=== PATIENT | female | born 1950 | race Two or more races ===

== ENCOUNTER → 2024-09-04 | Outpatient (CLI) | payer MEDICARE, MEDICAID, SELFPAY ==
[2024-09-04 12:38] LABS: Basophils % (Auto) 1 % (0-2.5); Eosinophils # (Auto) 0.1 Thou/mm3 (0.0-0.5); Eosinophils % (Auto) 2 % (0-10); Hematocrit 36.2 % (36.0-46.0); Hemoglobin 12.1 g/dL (12.0-16.0); Immature Granulocytes % (Auto) 1 % (0-0); Immature Granulocytes Auto 0.03 Thou/mm3 (0.00-0.00); Lymphocytes % (Auto) 36 % (10-50); Mean Corpuscular HGB Conc 33.4 g/dl (31.0-37.0); Mean Corpuscular Hemoglobin 32.2 pg (25.0-35.0); Mean Corpuscular Volume 96 fL (80-100); Monocytes # (Auto) 0.3 Thou/mm3 (0.0-0.8); Monocytes % (Auto) 6 % (0-12); Neutrophils % (Auto) 55 % (37-80); Nucleated Red Blood Cell % 0 /100 WBC (0); Platelet Count 123 Thou/mm3 (140-440); RDW Standard Deviation 43.8 fL (36.4-46.3); Red Blood Count 3.76 Miln/mm3 (4.00-5.20); White Blood Count 5.4 Thou/mm3 (3.6-11.0)
[2024-09-04 12:55] LABS: Anion Gap 10 (7-16); BUN/Creatinine Ratio 30 Ratio (12-20); Blood Urea Nitrogen 30 mg/dL (9-23); Calcium 9.8 mg/dL (8.3-10.6); Carbon Dioxide 25.5 mMol/L (20.0-31.0); Cardiac Risk Estimate 3.2 RATIO (3.7-5.6); Chloride 109 mMol/L (98-107); Cholesterol 136 mg/dL (132-200); Glucose 111 mg/dL (74-106); HDL Cholesterol 43 mg/dL (40-60); LDL Cholesterol,Calculated 65 mg/dL (0-130); Osmolality,Calculated 294 (275-295); Potassium 4.7 mMol/L (3.4-5.1); Sodium 144 mMol/L (136-145); Triglycerides 138 mg/dL (30-150); eGFR 60 See Note
[2024-09-04 12:58] LABS: Glucose Estimated Average 243 mg/dL (80-131); Hemoglobin A1C 10.1 % Hgb (4.8-6.0)
== END | disposition home or self-care (01) ==
LOC: COPL 11:12
PROVIDERS: PCP Family Medicine; Referring Provider Family Medicine; Visit Provider Family Medicine
DX: E11.65 Type 2 diabetes mellitus with hyperglycemia (principal)
CPT/HCPCS: 36415; 80048; 80061; 83036; 85025

== ENCOUNTER 2024-10-11 16:35 | Emergency (ER) | payer MEDICARE, MEDICAID, SELFPAY ==
[2024-10-11 16:47] VITALS: BP 127/67; PULSE 100; RESP 17; TEMP 37.1; O2SAT 97; BMI 36.3
--- NOTE | 2024-10-11 17:11 | XR_ITS ---
Examination: Bilateral hips, AP pelvis, 5 views Technique: AP, lateral views both hips, AP pelvis, 5 views Exam date and time: October 11, 2024 1719 hours INDICATIONS: Patient fell 11 days ago with injury to both hips, bilateral hip pain. FINDINGS: Significant osteopenia No right or left hip fracture or hip dislocation Bones of the pelvis intact IMPRESSION: No acute hip or pelvic fracture
--- NOTE | 2024-10-11 17:11 | XR_ITS ---
Examination: Duplex scan of the lower extremity, unilateral left complete Date and time of exam: October 11, 2024 at 1818 hrs. Indications: Patient fell last week with injury to the leg, leg bruising swelling and pain post injury Technique: Duplex scan of the extremity veins using B-mode/grayscale imaging and Doppler spectral analysis and color flow Attention is directed to internal echogenicity, compression and augmentation involving these veins, color flow assessment, spectral analysis Findings: Major deep venous structures in the extremity demonstrate normal course and caliber. There is no evidence of deep vein thrombosis. Normal color flow and spectral analysis Impression: Negative for DVT..
--- NOTE | 2024-10-11 17:13 | XR_ITS ---
Examination: Left femur 2 views Technique one AP lateral left femur 2 views Exam date and time: October 11, 2024 at 1719 hours INDICATIONS: Patient fell 11 days ago with injury to the left leg, left femur pain FINDINGS: Severe osteopenia No acute hip fracture or dislocation Shaft of the femur intact IMPRESSION: No acute femur fracture
--- NOTE | 2024-10-11 17:14 | PD.EDRME ---
Rapid Medical Screening Exam E Arrival date/time: 10/11/24 16:35 This is a 73-year-old female who presents to the emergency department with complaints of fall over 1 week ago complaining of left leg pain hip pain swelling and bruising. I have greeted and performed a focused initial assessment of this patient. Initial appropriate labs ordered at this time. A comprehensive ED assessment and evaluation of the patient and analysis of all test and completion of medical decision making process will be conducted by additional ED provider. Chief Complaint: Fall Time Seen by Provider: 10/11/24 16:54 Vital signs: Vital Signs Temperature 98.7 F 10/11/24 16:47 Pulse Rate 100 10/11/24 16:47 Respiratory Rate 17 10/11/24 16:47 Blood Pressure 127/67 10/11/24 16:47 Pulse Oximetry (%) 97 10/11/24 16:47 Oxygen Delivery Method Room Air 10/11/24 16:47
[2024-10-11 18:27] LABS: Basophils % (Auto) 0 % (0-2.5); Eosinophils % (Auto) 0 % (0-10); Hematocrit 31.1 % (36.0-46.0); Immature Granulocytes % (Auto) 1 % (0-0); Lymphocytes # (Auto) 0.8 Thou/mm3 (1.0-4.8); Lymphocytes % (Auto) 8 % (10-50); Mean Corpuscular HGB Conc 32.2 g/dl (31.0-37.0); Mean Corpuscular Hemoglobin 31.2 pg (25.0-35.0); Mean Corpuscular Volume 97 fL (80-100); Monocytes # (Auto) 0.4 Thou/mm3 (0.0-0.8); Monocytes % (Auto) 4 % (0-12); Neutrophils # (Auto) 7.8 Thou/mm3 (1.8-7.7); Neutrophils % (Auto) 86 % (37-80); Nucleated Red Blood Cell % 0 /100 WBC (0); Platelet Count 133 Thou/mm3 (140-440); RDW Standard Deviation 47.3 fL (36.4-46.3); Red Blood Count 3.21 Miln/mm3 (4.00-5.20); White Blood Count 9.1 Thou/mm3 (3.6-11.0)
[2024-10-11 18:33] LABS: Prothrombin Time 10.9 Seconds (9.0-12.2)
[2024-10-11 18:34] LABS: Alanine Aminotransferase 22 U/L (10-49); Albumin, Serum 4.1 gm/dL (3.4-4.8); Albumin/Globulin Ratio 1.7 (1.2-2.2); Alkaline Phosphatase 63 U/L (46-116); Anion Gap 10 (7-16); Aspartate Amino Transferase 16 U/L (0-34); BUN/Creatinine Ratio 28 Ratio (12-20); Bilirubin,Total 0.4 mg/dL (0.3-1.2); Blood Urea Nitrogen 34 mg/dL (9-23); Calcium 9.6 mg/dL (8.3-10.6); Calcium (Corrected) 9.6 mg/dL (8.5-10.1); Carbon Dioxide 22.9 mMol/L (20.0-31.0); Chloride 107 mMol/L (98-107); Creatinine (Component) 1.2 mg/dL (0.6-1.3); Estimated Creatinine Clearance 35.9 mL/min (>60); Globulin 2.4 gm/dL (2.3-3.5); Lipase 69 U/L (12-53); Osmolality,Calculated 306 (275-295); Sodium 140 mMol/L (136-145); Total Protein 6.5 gm/dL (5.7-8.2); eGFR 48 See Note
[2024-10-11 18:38] LABS: Glucose 449 mg/dL (74-106)
--- NOTE | 2024-10-11 21:49 | PC.NURSE ---
Pt to room 16 at this time from lobby; assumed care of pt.
[2024-10-11 22:00] VITALS: BP 153/64; PULSE 87; RESP 16; O2SAT 98
[2024-10-11 23:05] VITALS: TEMP 36.7
--- NOTE | 2024-10-11 23:12 | PD.EDFALL ---
ED Fall Injury RME/HPI General Chief Complaint: Fall Stated Complaint: FALL ON 09/30, INJURY TO LEFT LEG THIGH TO FOOT Time Seen by Provider: 10/11/24 16:54 Arrival date/time: 10/11/24 16:35 Limitations: no limitations RME / HPI RME / HPI Narrative: 10/11/24 16:35 This is a 73-year-old female who presents to the emergency department with complaints of fall over 1 week ago complaining of left leg pain hip pain swelling and bruising. I have greeted and performed a focused initial assessment of this patient. Initial appropriate labs ordered at this time. A comprehensive ED assessment and evaluation of the patient and analysis of all test and completion of medical decision making process will be conducted by additional ED provider. Dr. Lee's Main ED Evaluation: 73yo female with pmhx diabetes, hypertension, high cholesterol, congestive heart failure presents to the ED for a chief complaint of a fall 1 week ago. Patient states she fell over on her left side one week ago when she was leaning over to put soda away. She endorses having left hip pain. She denies any headache, neck pain, chest pain or any other associated symptoms. She is on blood thinners. No known allergies. Related Data Home Medications ?Medication ?Instructions ?Recorded ?Confirmed glipizide 10 mg tablet 10 mg PO QDAY ##0 05/11/09 08/29/21 metformin 850 mg tablet 850 mg PO BID ##0 05/11/09 08/29/21 tramadol 50 mg tablet 50 mg PO BID ##0 12/28/13 08/29/21 clopidogrel 75 mg tablet 1 tab PO DAILY 01/02/18 08/29/21 famotidine 40 mg tablet (Pepcid) 40 mg PO DAILY 01/02/18 08/29/21 Previous Rx's ?Medication ?Instructions ?Recorded atorvastatin 20 mg tablet 20 mg PO HS #30 tabs 07/26/18 lisinopril 20 mg tablet 20 mg PO QDAY #30 tabs 07/26/18 meclizine 25 mg tablet 25 mg PO QDAY PRN dizziness #10 05/16/23 tabs cephalexin 500 mg capsule 500 mg PO QID #28 caps 08/05/23 Allergies Allergy/AdvReac Type Severity Reaction Status Date / Time No Known Allergies Allergy Verified 10/11/24 16:38 Review of Systems Review of Systems Systems Reviewed: All systems reviewed, normal except as documented Past Medical History Past Medical History NEUROLOGIC: Positive Cerebrovascular Accident; Negative Neurological Disorders, Transient Ischemic Attacks (TIA), Dementia, Alzheimer's Disease, Parkinson's Disease, Brain Tumor, Meningitis, Seizures, Epilepsy, Multiple Sclerosis, Cerebral Palsy, Amyotrophic Lateral Sclerosis (ALS/Lizz Gehrig's), Guillain-Johnson Syndrome, Spina Bifida, Paralysis, Peripheral Neuropathy, Quiroz's Palsy, Subdural Hematoma, Migraine, Head Trauma, Spinal Cord Injury or Traumatic Brain Injury CARDIAC: Positive Cardiac Disorders, Myocardial Infarction, Angina, Heart Murmur, Coronary Artery Disease, Hypercholesterolemia, Aneurysm, Congestive Heart Failure, Edema and Hypertension; Negative Cardiac Arrhythmia, Atrial Fibrillation, Atherosclerotic Heart Disease, Peripheral Vascular Disease, Congenital Heart Disease, Valvular Heart Disease, Rheumatic Fever, Cardiomyopathy, Pericarditis, Cellulitis, Deep Vein Thrombosis, Hypotension or Varicose Veins RESPIRATORY: Positive Chronic Obstructive Pulmonary Disease (COPD) GASTROINTESTINAL: Positive Obesity; Negative Gastrointestinal Disorders, Cirrhosis, Pancreatitis, Celiac Disease, Gall Bladder Disease, Gastrointestinal Bleed, Esophageal Varices, Fair's Esophagus, Colitis, Ulcerative Colitis, Diverticulitis, Diverticulosis, Ulcer, Irritable Bowel, Crohn's Disease, Obstructive Bowel, Hiatal Hernia, Hemorrhoids or Gastroesophageal Reflux Disease GENITOURINARY: Negative Genitourinary Disorders, Renal Disease, Kidney Stones, Polycystic Kidney Disease, Neurogenic Bladder, Inguinal Hernia, Dialysis or Benign Prostatic Hyperplasia REPRODUCTIVE: Positive Previous Pregnancies; Negative Pelvic Inflammatory Disease MUSCULOSKELETAL: Negative Musculoskeletal Disorders, Muscular Dystrophy, Myasthenia Gravis, Marfan's Syndrome, Arthritis, Rheumatoid Arthritis, Osteoporosis, Degenerative Disk Disease, Gout, Scoliosis, Fibromyalgia, Fractures, Degenerative Joint Disease, Osteomyelitis or Poliovirus ENT: Positive Cataracts; Negative Glaucoma, Blind, Retinal Detachment, Macular Degeneration, Ear Infection, Deafness, Head Trauma or Eye Prosthesis ENDOCRINE: Positive Diabetes Mellitus Type 2; Negative Endocrine Disorders, Diabetes Mellitus Type 1, Hypoglycemia, Ashleigh's Syndrome, Livingston's Disease, Hyperthyroidism, Hypothyroidism, Parathyroid Disease, Pituitary Disease, Systemic Lupus Erythematosus, Syndrome of Inappropriate Antidiuretic Hormone (SIADH), Adrenal Disease or Graves' Disease HEMATOLOGIC: Positive Anemia; Negative Blood Disorders, Leukemia, Hemophilia, Thalassemia, Sickle Cell Disease or Clotting Problems PSYCHO/SOCIAL: Positive Anxiety; Negative Psychiatric Problems, Schizophrenia, Recreational Drug Use, Bipolar Disorder, Depression, Behavior Problems, Self-Mutilation, Attention Deficit Disorder, Attention Deficit Hyperactivity Disorder, Depression, Post Traumatic Stress Disorder or Eating Disorder OTHER HISTORY: Positive Hospitalization, Blood Transfusions and Chicken Pox; Negative Autoimmune Disease, Autism or Blood Transfusion Reaction Family History FAMILY HISTORY: Positive Family Respiratory Disorders and Family Cardiac Disorders; Negative Family Psychiatric Problems, Family Gastrointestinal Problems, Family Cancer, Family Surgery or Family Anesthesia Reaction Surgical History SURGICAL: Positive Cardiac Surgery, Coronary Stent, Abdominal Surgery and Section; Negative Pacemaker, Endocrine Surgery, Thyroidectomy, Ear Surgery, Nephrectomy, Joint Replacement, Neurologic Surgery or Mastectomy Social History SMOKING STATUS: Never smoker SUBSTANCE USE: does not use ED Exam General Limitations: Present no limitations General appearance: Present alert and in no apparent distress Head Head exam: Present atraumatic Eye Eye exam: Present normal appearance, PERRL and EOMI ENT ENT exam: Present normal exam, normal oropharynx and mucous membranes moist Neck Neck exam: Present normal inspection, full ROM and trachea midline Chest Chest inspection: Present normal inspection and symmetric chest wall rise Respiratory Respiratory exam: Present normal lung sounds bilaterally Cardiovascular Cardiovascular exam: Present regular rate, normal rhythm and normal heart sounds Abdominal Exam Abdominal exam: Present soft and normal bowel sounds Extremities Exam Extremities exam: Present normal inspection, full ROM and other (ecchymosis to the left outer hip without any fluctuance, full ROM of the left hip, no bony tenderness, good distal pulses) Back Exam Back exam: Present normal inspection and full ROM Neurological Exam Neurological exam: Present alert, oriented X3 and CN II-XII intact Psychiatric Psychiatric exam: Present normal affect and normal mood Skin Skin exam: Present warm, dry, intact and other (ecchymosis from the left medial thigh down to the medial lef) Course Course Course Narrative: 2334: Repeat FSBS is 362. Patient is stable to be discharged home. Quality Measures none Orders Category Date Time Status US venous duplex LE LT Stat Exams 10/11/24 17:11 Completed XR femur LT 2V Stat Exams 10/11/24 17:13 Completed XR hip BI w pelvis 3-4V Stat Exams 10/11/24 17:11 Completed CBC Stat Lab 10/11/24 17:45 Completed Comprehensive Metabolic Panel Stat Lab 10/11/24 17:45 Completed Lipase Stat Lab 10/11/24 17:45 Completed PT [Prothrombin Time with INR] Stat Lab 10/11/24 17:45 Completed Vital Signs Vital signs: Vital Signs Temperature 98.7 F 10/11/24 16:47 Pulse Rate 100 10/11/24 16:47 Respiratory Rate 17 10/11/24 16:47 Blood Pressure 127/67 10/11/24 16:47 Pulse Oximetry (%) 97 10/11/24 16:47 Oxygen Delivery Method Room Air 10/11/24 16:47 Fall Patient data External records reviewed:: [facility] previous records (Per chart review, patient has no relevant previous ED visits.) Clinical information provided by:: patient Social determinants that could affect healthcare access:: none Patient has the following chronic illnesses:: DM, HTN, HLD, CHF How is presenting disease/condition affected by chronic disease/condition?: uneffected by Evaluation data The following diagnostics were reviewed and interpreted by me:: lab results and radiology exam(s) Lab and/or radiology exams considered but not ordered:: none Interpretation Summary: WBC count is normal, HnH is stable, Glucose is elevated at 449, according to my interpretation. ---- [facility] Report Signed Patient: BLU BONE Pod[employer]. Record#: [id number] Birthdate: 1950 Age/Sex: 73 / F Location: [facility] Attending Dr: Ordering Physician: Shanda Escobar Date of Service: 10/11/24 Procedure(s): XR hip BI w pelvis 3-4V Accession Number(s): [id number] cc: Damaso Tim MD; Shanda Escobar~ Examination: Bilateral hips, AP pelvis, 5 views Technique: AP, lateral views both hips, AP pelvis, 5 views Exam date and time: October 11, 2024 1719 hours INDICATIONS: Patient fell 11 days ago with injury to both hips, bilateral hip pain. FINDINGS: Significant osteopenia No right or left hip fracture or hip dislocation Bones of the pelvis intact IMPRESSION: No acute hip or pelvic fracture Dictated By: Damaso Tim MD Signed By: <Electronically signed by Damaso Tim MD in OV> 10/11/24 1745 -------- [facility] Report Signed Patient: BLU BONE PodPoster. Record#: [id number] Birthdate: 1950 Age/Sex: 73 / F Location: [facility] Attending Dr: Ordering Physician: Shanda Escobar Date of Service: 10/11/24 Procedure(s): US venous duplex LE LT Accession Number(s): [id number] cc: Damaso Tim MD; Sydni Garza MD; Shanda Escobar~ Examination: Duplex scan of the lower extremity, unilateral left complete Date and time of exam: October 11, 2024 at 1818 hrs. Indications: Patient fell last week with injury to the leg, leg bruising swelling and pain post injury Technique: Duplex scan of the extremity veins using B-mode/grayscale imaging and Doppler spectral analysis and color flow Attention is directed to internal echogenicity, compression and augmentation involving these veins, color flow assessment, spectral analysis Findings: Major deep venous structures in the extremity demonstrate normal course and caliber. There is no evidence of deep vein thrombosis. Normal color flow and spectral analysis Impression: Negative for DVT.. Dictated By: Damaso Tim MD Signed By: <Electronically signed by Damaso Tim MD in OV> 10/11/241950 -------- [facility] Report Signed Patient: BLU BONE Record#: [id number] Birthdate: 1950 Age/Sex: 73 / F Location: [facility] Attending Dr: Ordering Physician: Shanda Escobar Date of Service: 10/11/24 Procedure(s): XR femur LT 2V Accession Number(s): [id number] cc: Damaso Tim MD; Shanda Escobar~ Examination: Left femur 2 views Technique one AP lateral left femur 2 views Exam date and time: October 11, 2024 at 1719 hours INDICATIONS: Patient fell 11 days ago with injury to the left leg, left femur pain FINDINGS: Severe osteopenia No acute hip fracture or dislocation Shaft of the femur intact IMPRESSION: No acute femur fracture Dictated By: Damaso Tim MD Signed By: <Electronically signed by Damaso Tim MD in OV> 10/11/24 1745 Medications / Prescriptions Medications or Prescriptions considered but not ordered:: none Medication administrations:: see above, if any Consultations Consultation(s) initiated? (list below): No Diagnosis Fall Differential Diagnosis: other (fracture, dislocation, contusion) Most likely diagnosis given after review of the tests above:: see below Admission Indicated Admission indicated?: not indicated Admission Request Was there a request for admission?: No Disposition Plan Disposition Plan: Discharge Discharge Attestation Discharge Attestation: The patient and all family members were given an opportunity to ask questions and understood the discharge instructions. Discharge instructions specifically effects, indications for sooner follow up or return to the emergency department, and the expected course of current diagnosis. Patient condition: Stable Discharge Plan Plan Patient Disposition: HOME (Self Care) Patient condition on transfer: Stable Prescriptions/Referrals Prescriptions/Med Rec: No Action glipizide 10 MG tablet 10 mg PO QDAY Qty: 0 metformin 850 mg Tablet 850 mg PO BID Qty: 0 tramadol 50 mg Tablet 50 mg PO BID Qty: 0 famotidine [Pepcid] 40 mg Tablet 40 mg PO DAILY clopidogrel 75 mg Tablet 1 tab PO DAILY atorvastatin 20 mg Tablet 20 mg PO HS Qty: 30 2RF lisinopril 20 mg Tablet 20 mg PO QDAY Qty: 30 2RF meclizine 25 mg tablet 25 mg PO QDAY PRN (Reason: dizziness) Qty: 10 0RF cephalexin 500 mg capsule 500 mg PO QID Qty: 28 0RF Referrals: SQ Sydin Moss MD [Primary Care Provider] - In 1 week Problem List Clinical Impression: Ecchymosis on examination, Fall (on)(from) incline, initial encounter Patient/Caregiver Discharge Instructions Education Materials: Dizziness Fainting Poss Causes Print Language: [place] Stand Alone Forms: Frances Award Info., Patient Portal Info Letter
--- NOTE | 2024-10-11 23:12 | PC.NURSE ---
Dr. Lee at the bedside at this time.
[2024-10-11 23:41] VITALS: BP 143/57; PULSE 85; RESP 19; O2SAT 97
== END 2024-10-11 23:41 | disposition home or self-care (01) ==
PROVIDERS: Nurse Practitioner Primary Care; Emergency Provider Emergency Medicine; PCP Family Medicine
DX: S70.02XA Contusion of left hip, initial encounter (principal); S70.12XA Contusion of left thigh, initial encounter; S79.911A Unspecified injury of right hip, initial encounter; W19.XXXA Unspecified fall, initial encounter
CPT/HCPCS: 36415; 73522; 73552; 80053; 83690; 85025; 85610; 93971; 99284

== ENCOUNTER → 2025-02-22 | Outpatient (CLI) | payer OTHER, MEDICAID, SELFPAY ==
[2025-02-22 11:02] LABS: Collection Type, Urine Clean Catch
[2025-02-22 11:22] LABS: Basophils % (Auto) 0 % (0-2.5); Eosinophils % (Auto) 0 % (0-10); Hematocrit 32.6 % (36.0-46.0); Hemoglobin 10.6 g/dL (12.0-16.0); Immature Granulocytes % (Auto) 1 % (0-0); Immature Granulocytes Auto 0.06 Thou/mm3 (0.00-0.00); Lymphocytes # (Auto) 0.9 Thou/mm3 (1.0-4.8); Lymphocytes % (Auto) 15 % (10-50); Mean Corpuscular HGB Conc 32.5 g/dl (31.0-37.0); Mean Corpuscular Hemoglobin 29.7 pg (25.0-35.0); Mean Corpuscular Volume 91 fL (80-100); Monocytes # (Auto) 0.3 Thou/mm3 (0.0-0.8); Monocytes % (Auto) 5 % (0-12); Neutrophils # (Auto) 4.6 Thou/mm3 (1.8-7.7); Neutrophils % (Auto) 79 % (37-80); Nucleated Red Blood Cell % 0 /100 WBC (0); Platelet Count 184 Thou/mm3 (140-440); RDW Standard Deviation 46.7 fL (36.4-46.3); Red Blood Count 3.57 Miln/mm3 (4.00-5.20); White Blood Count 5.8 Thou/mm3 (3.6-11.0)
[2025-02-22 11:30] LABS: Bilirubin,Urine Negative (Negative); Blood,Urine Negative (Negative); Clarity,Urine Clear (Clear/Hazy); Color,Urine Lt-Yellow (Lt Yel-Yel); Glucose, Urine 4+ (Negative); Ketones,Urine Negative (Negative); Leukocyte Esterase,Urine Positive (Negative); Nitrite,Urine Negative (Negative); Protein,Urine Trace (Neg - Trace); RBC,Urine 2 /hpf (0-3); Specific Gravity,Urine 1.022 (1.001-1.035); Squamous Epithelial Cell,Urine 1 /hpf (0-5); Urobilinogen,Urine Negative mg/dL (0.0-1.0); WBC,Urine 6 /hpf (0-5)
[2025-02-22 11:39] LABS: Alanine Aminotransferase 17 U/L (10-49); Albumin, Serum 4.4 gm/dL (3.4-4.8); Alkaline Phosphatase 64 U/L (46-116); Anion Gap 13 (7-16); Aspartate Amino Transferase 14 U/L (0-34); BUN/Creatinine Ratio 26 Ratio (12-20); Bilirubin,Total 0.3 mg/dL (0.3-1.2); Blood Urea Nitrogen 26 mg/dL (9-23); Calcium 8.6 mg/dL (8.3-10.6); Calcium (Corrected) 8.6 mg/dL (8.5-10.1); Carbon Dioxide 23.1 mMol/L (20.0-31.0); Cardiac Risk Estimate 3.5 RATIO (3.7-5.6); Chloride 108 mMol/L (98-107); Cholesterol 108 mg/dL (132-200); Globulin 2.2 gm/dL (2.3-3.5); Glucose 341 mg/dL (74-106); HDL Cholesterol 31 mg/dL (40-60); LDL Cholesterol,Calculated 51 mg/dL (0-130); Osmolality,Calculated 304 (275-295); Potassium 4.9 mMol/L (3.4-5.1); Sodium 144 mMol/L (136-145); Thyroid Stimulating Hormone 0.89 uIU/mL (0.55-4.78); Total Protein 6.6 gm/dL (5.7-8.2); Triglycerides 131 mg/dL (30-150); eGFR 59 See Note
[2025-02-22 11:48] LABS: Creatinine MALB Rnd Ur 36 mg/dL (30-125); Microalbumin Creat Ratio 364 mg/gCrea (<30); Microalbumin, Random Urine 131 mg/L (0-300)
[2025-02-22 11:49] LABS: Glucose Estimated Average 249 mg/dL (80-131); Hemoglobin A1C 10.3 % Hgb (4.8-6.0)
== END | disposition home or self-care (01) ==
PROVIDERS: PCP Family Medicine; Referring Provider Family Medicine; Visit Provider Family Medicine
DX: Z00.00 Encounter for general adult medical examination without abnormal findings (principal); E11.40 Type 2 diabetes mellitus with diabetic neuropathy, unspecified; E78.2 Mixed hyperlipidemia; I10 Essential (primary) hypertension
CPT/HCPCS: 36415; 80053; 80061; 81001; 82043; 82570; 83036; 84443; 85025

== ENCOUNTER → 2025-04-09 | Outpatient (CLI) | payer OTHER, MEDICAID, SELFPAY ==
--- NOTE | 2025-04-09 15:53 | XR_ITS ---
EXAMINATION: Cervical spine, 5 views Technique: Cervical spine AP, AP odontoid, lateral, bilateral obliques, 5 views Exam date and time: April 09, 2025, 6003 hours INDICATIONS: Neck pain one year. FINDINGS: Significant osteopenia Extensive laminectomy C3-C6 Moderate to advanced degenerative disc disease C4-C5 Mild foraminal encroachment bilaterally C3-C4, C4-C5, C5-C6 The odontoid is intact No cervical fracture IMPRESSION: Moderate to advanced degenerative disc disease C4-C5
--- NOTE | 2025-04-09 15:53 | XR_ITS ---
Examination: Shoulder,right, 3 views Technique: Shoulder AP internal rotation, AP external rotation, Y view shoulder, 3 views Exam date and time :April 09, 2025 6003 hours INDICATIONS: Right shoulder pain beginning 3 years ago. FINDINGS: Prominent osteopenia. Moderate to advanced osteoarthritis glenohumeral joint No shoulder fracture or AC joint separation IMPRESSION: Moderate to advanced osteoarthritis glenohumeral joint
== END | disposition home or self-care (01) ==
PROVIDERS: PCP Family Medicine; Referring Provider Family Medicine; Visit Provider Family Medicine
DX: M19.011 Primary osteoarthritis, right shoulder (principal); M50.321 Other cervical disc degeneration at C4-C5 level
CPT/HCPCS: 72050; 73030

== ENCOUNTER 2025-04-11 18:17 | Emergency (ER) | payer OTHER, SELFPAY ==
[2025-04-11 18:18] VITALS: BMI 33.7
--- NOTE | 2025-04-11 18:34 | XR_ITS ---
Examination: Shoulder,right, 3 views Technique: Shoulder AP internal rotation, AP external rotation, Y view shoulder, 3 views Exam date and time :April 11, 2025 1853 hours INDICATIONS: Patient fell 2 days ago with intravenous shoulder, shoulder pain. FINDINGS: No shoulder fracture or dislocation No foreign body IMPRESSION: No shoulder fracture or dislocation
[2025-04-11 19:42] VITALS: BP 99/63; PULSE 91; RESP 20; TEMP 36.7; O2SAT 97
--- NOTE | 2025-04-11 19:49 | EKG_ITS ---
[facility] Test Date: 2025-04-11 Pat Name: BLU BONE Department: Room: - Gender: Female [employer]: : 1950 Requested By: Wu Johnson Order Number: [id number] Reading MD: Wu Johnson Measurements Intervals [place] Rate: 89 P: 27 NE: 174 QRS: -19 QRSD: 106 T: 138 QT: 362 QTc: 441 Interpretive Statements SINUS RHYTHM LEFT VENTRICULAR HYPERTROPHY AND ST-T CHANGE [VOLTAGE CRITERIA PLUS ST/T ABNORMALITY] POSSIBLE ANTERIOR MYOCARDIAL INFARCTION , OF INDETERMINATE AGE [30 ms Q WAVE IN V3/V4, OR R < 0.2 mV IN V4] Compared to ECG 04/06/2024 12:54:09 Myocardial infarct finding now present ST (T wave) deviation still present /store/S0/[id number]/ecg/[id number].pdf
--- NOTE | 2025-04-11 19:50 | XR_ITS ---
Examination: CT brain head without contrast. 2-D sagittal coronal reconstructions Date and time of exam:April 11, 2025 2141 hours Comparison August 05, 2023 INDICATIONS: Patient fell today with injury to head, head pain CTDI: vol (mGy):9.6 DLP: (mGycm):193 Technique: Multiple CT axial sections of the brain have been obtained, 5 mm slice thickness. Contrast has not been administered. 2-D sagittal, coronal reconstructions have been obtained Low dose protocols were performed. One or more of the following dose reduction techniques were used; automated exposure control, adjustment of the mA and/or KV according to patient size, use of iterative reconstruction technique. Findings: No significant ventricular enlargement. Intra-axial or extra-axial hemorrhage density is not seen. No mass effect or midline shift Basal cisterns are not remarkable. Fourth ventricle is midline. Cranial vault intact. Stable calcification right occipital lobe Impression: Negative for acute hemorrhage, mass effect or midline shift
--- NOTE | 2025-04-11 19:50 | XR_ITS ---
Examination: CT cervical spine without contrast 2-D sagittal reconstructions 2-D coronal reconstructions 3-D reconstructions. Exam date and time:April 11, 2025 2141 hours INDICATIONS: Ground-level fall today with image of the neck, neck pain CTDI:vol (mGy) 9.34 DLP: (mGycm) 174 Technique: Multiple 2 mm axial sections of the cervical spine have been obtained. The coronal and sagittal reconstructions have been obtained. 3-D reconstructions have been obtained. Low dose protocols were performed. One or more of the following dose reduction techniques were used; automated exposure control, adjustment of the mA and/or KV according to patient size, use of iterative reconstruction technique. Findings: Axial sections demonstrate intact base of the skull. The laminectomy C3-C6 C1 exhibit satisfactory relationship to the odontoid. No acute cervical vertebral body fracture seen. Fracture posterior spinous process T1 and T2 which appear old but clinical correlation is advised Impression: No acute cervical fracture. Fractures posterior spinous processes T1-T2 which appear old but clinical correlation is advised
--- NOTE | 2025-04-11 19:50 | XR_ITS ---
Examination: AP chest single view TECHNIQUE: AP upright portable chest single view Date and time: April 11, 20252000 hours INDICATIONS: Patient fell today with injury to the chest, chest pain FINDINGS: Normal heart size No pneumonia or pulmonary edema Prominent osteopenia, clavicles ribs appear intact IMPRESSION: No pneumothorax pulmonary contusion or pneumonia identified
--- NOTE | 2025-04-11 19:50 | XR_ITS ---
Examination: CT chest with intravenous contrast CT abdomen with intravenous contrast CT pelvis with intravenous contrast 2-D coronal and sagittal reconstructions Time of exam: April 11, 2025 2150 hours INDICATIONS: Patient fell today within the chest and abdomen, chest pain abdomen pain CTDI: vol (mGy) : 16 DLP: (mGycm): 1117 Technique: Multiple axial images of the chest, abdomen and pelvis with intravenous contrast, 3.0 mm slice thickness. Images obtained post intravenous injection Isovue 370 60 cc. 2-D sagittal and coronal reconstructions. Low dose protocols were performed. One or more of the following dose reduction techniques were used; automated exposure control, adjustment of the mA and/or KV according to patient size, use of iterative reconstruction technique. Findings: Thoracic aorta pulmonary arteries intact No hemopericardium, pneumothorax or pulmonary contusion or hemothorax Sternal segment intact No thoracic or lumbar or sacral vertebral body compression fracture Old appearing fractures posterior spinous processes T1, T2, T3, T4, T5 but the appearance should be clinically correlated Ribs appear intact No liver or splenic or renal laceration Absent gallbladder No pancreatic or adrenal mass Abdominal aorta intact No free body in the abdomen Normal appendix Negative for pneumoperitoneum Atrophic uterus Urinary bladder intact Hips bones of the pelvis is intact IMPRESSION: Thoracic aorta pulmonary arteries intact No pneumothorax pulmonary contusion or hemothorax No abdominal parenchymal laceration. Abdominal aorta intact No free fluid in the abdomen or pelvis Fractures posterior spinous processes T1, T2, T3, T4, T5, which appear old but the appearance should be clinically correlated If there is pain involving the posterior thoracic vertebral bodies in this region, recommend MRI thoracic spine without contrast follow-up
--- NOTE | 2025-04-11 19:50 | XR_ITS ---
Examination: Right elbow 3 views Technique: Elbow AP, oblique, lateral 3 views Exam date and time: April 11, 2025 1953 hours INDICATIONS: Patient fell today with injury of the elbow, elbow pain. FINDINGS: Prominent osteopenia. No acute fracture No dislocation No elbow effusion IMPRESSION: No acute fracture
--- NOTE | 2025-04-11 19:50 | XR_ITS ---
Examination: Wrist, right 3 views Technique: Wrist AP, oblique, lateral 3 views Date and time of exam: April 11, 2025, 195 hours INDICATIONS: Patient fell today with intravenous, wrist pain. FINDINGS: Prominent osteopenia No acute fracture Distal ulna is dorsally positioned on the lateral view mildly IMPRESSION: No acute fracture Distal ulna is mildly dorsally positionED on the lateral view, clinical correlation advised
--- NOTE | 2025-04-11 19:53 | PD.EDFALL ---
ED Fall Injury RME/HPI General Chief Complaint: Extremity Injury, Upper Stated Complaint: RIGHT SHOULDER PAIN SP FALL STANDING TO GROUN Time Seen by Provider: 04/11/25 19:52 Arrival date/time: 04/11/25 18:17 74F with history of CAD, HTN, DM, and CHF presents to ED with RUE pain and weakness after she got dizzy while sitting on the toilet 2 days ago and fell. There is also some head/neck pain. Possible AMS. Limitations: no limitations Related Data Home Medications ?Medication ?Instructions ?Recorded ?Confirmed glipizide 10 mg tablet 10 mg PO QDAY ##0 05/11/09 08/29/21 metformin 850 mg tablet 850 mg PO BID ##0 05/11/09 08/29/21 tramadol 50 mg tablet 50 mg PO BID ##0 12/28/13 08/29/21 clopidogrel 75 mg tablet 1 tab PO DAILY 01/02/18 08/29/21 famotidine 40 mg tablet (Pepcid) 40 mg PO DAILY 01/02/18 08/29/21 Previous Rx's ?Medication ?Instructions ?Recorded atorvastatin 20 mg tablet 20 mg PO HS #30 tabs 07/26/18 lisinopril 20 mg tablet 20 mg PO QDAY #30 tabs 07/26/18 meclizine 25 mg tablet 25 mg PO QDAY PRN dizziness #10 05/16/23 tabs cephalexin 500 mg capsule 500 mg PO QID #28 caps 08/05/23 hydrocodone 5 mg-acetaminophen 325 1 tab PO BID PRN pain #10 tabs 04/12/25 mg tablet Allergies Allergy/AdvReac Type Severity Reaction Status Date / Time No Known Allergies Allergy Verified 04/11/25 18:20 Review of Systems Review of Systems Systems Reviewed: All systems reviewed, normal except as documented Constitutional Constitutional: Reports system reviewed and no additional complaints, except as documented, Denies fever(s), Denies headache(s) and Reports weakness ENT Ears, Nose, Mouth, and Throat: Denies disequilibrium and Denies headache(s) Cardiovascular Cardiovascular: Reports system reviewed and no additional complaints, except as documented, Denies chest pain and Denies dyspnea Respiratory Respiratory: Reports system reviewed and no additional complaints, except as documented, Denies cough and Denies dyspnea Gastrointestinal Gastrointestinal: Reports system reviewed and no additional complaints, except as documented, Denies abdominal pain, Denies nausea and Denies vomiting Musculoskeletal Musculoskeletal: Reports as per HPI and Reports arthralgias Neurologic Neurologic: Reports system reviewed and no additional complaints, except as documented, Reports as per HPI, Denies confusion, Denies disequilibrium, Denies headache(s) and Reports weakness Psychiatric Psychiatric: Denies confusion Past Medical History Past Medical History NEUROLOGIC: Positive Cerebrovascular Accident; Negative Neurological Disorders, Transient Ischemic Attacks (TIA), Dementia, Alzheimer's Disease, Parkinson's Disease, Brain Tumor, Meningitis, Seizures, Epilepsy, Multiple Sclerosis, Cerebral Palsy, Amyotrophic Lateral Sclerosis (ALS/Lizz Gehrig's), Guillain-[place] Syndrome, Spina Bifida, Paralysis, Peripheral Neuropathy, Quiroz's Palsy, Subdural Hematoma, Migraine, Head Trauma, Spinal Cord Injury or Traumatic Brain Injury CARDIAC: Positive Cardiac Disorders, Myocardial Infarction, Angina, Heart Murmur, Coronary Artery Disease, Hypercholesterolemia, Aneurysm, Congestive Heart Failure, Edema and Hypertension; Negative Cardiac Arrhythmia, Atrial Fibrillation, Atherosclerotic Heart Disease, Peripheral Vascular Disease, Congenital Heart Disease, Valvular Heart Disease, Rheumatic Fever, Cardiomyopathy, Pericarditis, Cellulitis, Deep Vein Thrombosis, Hypotension or Varicose Veins RESPIRATORY: Positive Chronic Obstructive Pulmonary Disease (COPD) GASTROINTESTINAL: Positive Obesity; Negative Gastrointestinal Disorders, Cirrhosis, Pancreatitis, Celiac Disease, Gall Bladder Disease, Gastrointestinal Bleed, Esophageal Varices, Fair's Esophagus, Colitis, Ulcerative Colitis, Diverticulitis, Diverticulosis, Ulcer, Irritable Bowel, Crohn's Disease, Obstructive Bowel, Hiatal Hernia, Hemorrhoids or Gastroesophageal Reflux Disease GENITOURINARY: Negative Genitourinary Disorders, Renal Disease, Kidney Stones, Polycystic Kidney Disease, Neurogenic Bladder, Inguinal Hernia, Dialysis or Benign Prostatic Hyperplasia REPRODUCTIVE: Positive Previous Pregnancies; Negative Pelvic Inflammatory Disease MUSCULOSKELETAL: Negative Musculoskeletal Disorders, Muscular Dystrophy, Myasthenia Gravis, Marfan's Syndrome, Arthritis, Rheumatoid Arthritis, Osteoporosis, Degenerative Disk Disease, Gout, Scoliosis, Fibromyalgia, Fractures, Degenerative Joint Disease, Osteomyelitis or Poliovirus ENT: Positive Cataracts; Negative Glaucoma, Blind, Retinal Detachment, Macular Degeneration, Ear Infection, Deafness, Head Trauma or Eye Prosthesis ENDOCRINE: Positive Diabetes Mellitus Type 2; Negative Endocrine Disorders, Diabetes Mellitus Type 1, Hypoglycemia, Barrington's Syndrome, Day's Disease, Hyperthyroidism, Hypothyroidism, Parathyroid Disease, Pituitary Disease, Systemic Lupus Erythematosus, Syndrome of Inappropriate Antidiuretic Hormone (SIADH), Adrenal Disease or Graves' Disease HEMATOLOGIC: Positive Anemia; Negative Blood Disorders, Leukemia, Hemophilia, Thalassemia, Sickle Cell Disease or Clotting Problems PSYCHO/SOCIAL: Positive Anxiety; Negative Psychiatric Problems, Schizophrenia, Recreational Drug Use, Bipolar Disorder, Depression, Behavior Problems, Self-Mutilation, Attention Deficit Disorder, Attention Deficit Hyperactivity Disorder, Depression, Post Traumatic Stress Disorder or Eating Disorder OTHER HISTORY: Positive Hospitalization, Blood Transfusions and Chicken Pox; Negative Autoimmune Disease, Autism or Blood Transfusion Reaction Family History FAMILY HISTORY: Positive Family Respiratory Disorders and Family Cardiac Disorders; Negative Family Psychiatric Problems, Family Gastrointestinal Problems, Family Cancer, Family Surgery or Family Anesthesia Reaction Surgical History SURGICAL: Positive Cardiac Surgery, Coronary Stent, Abdominal Surgery and Section; Negative Pacemaker, Endocrine Surgery, Thyroidectomy, Ear Surgery, Nephrectomy, Joint Replacement, Neurologic Surgery or Mastectomy Social History SMOKING STATUS: Never smoker SUBSTANCE USE: does not use ED Exam General Limitations: Present no limitations General appearance: Present alert and in no apparent distress Head Head exam: Present atraumatic Eye Eye exam: Present normal appearance, PERRL and EOMI ENT ENT exam: Present normal exam, normal oropharynx and mucous membranes moist Neck Neck exam: Present normal inspection, full ROM and trachea midline Chest Chest inspection: Present normal inspection and symmetric chest wall rise Respiratory Respiratory exam: Present normal lung sounds bilaterally Cardiovascular Cardiovascular exam: Present regular rate, normal rhythm and normal heart sounds Abdominal Exam Abdominal exam: Present soft and normal bowel sounds Expanded Upper Extremity Exam Shoulder exam: Absent full ROM (R) Back Exam Back exam: Present normal inspection and full ROM Neurological Exam Neurological exam: Present alert, oriented X3 and CN II-XII intact Psychiatric Psychiatric exam: Present normal affect and normal mood Skin Skin exam: Present warm, dry, intact and normal color Course Quality Measures none Orders Category Date Time Status CT Screening NOW Care 04/11/25 19:50 Completed EKG (ED ONLY) *Do not use* NOW Care 04/11/25 19:49 Completed In and Out Catheter X1 Care 04/12/25 01:53 Completed Insert IV NOW Care 04/11/25 19:50 Completed MRI Screening NOW Care 04/11/25 22:[address] cervical spine wo con Stat Exams 04/11/25 19:[address] chest abdomen pelvis w Stat Exams 04/11/25 19:[address] head/brain wo con Stat Exams 04/11/25 19:50 Completed EKG (ED Only) Stat Exams 04/11/25 19:49 Draft MR head/brain wo con Stat Exams 04/12/25 Completed MR thoracic spine wo con Stat Exams 04/12/25 Completed XR chest 1V portable Stat Exams 04/11/25 19:50 Completed XR elbow comp RT min 3V Stat Exams 04/11/25 19:50 Completed XR shoulder RT min 2V Stat Exams 04/11/25 18:34 Completed XR wrist comp RT min 3V Stat Exams 04/11/25 19:50 Completed Antibody Identification Stat Lab 04/11/25 21:13 Completed B-Type Natriuretic Peptide Stat Lab 04/11/25 21:05 Completed CBC Stat Lab 04/11/25 21:05 Completed Comprehensive Metabolic Panel Stat Lab 04/11/25 21:05 Completed Drug Screen,Urine Stat Lab 04/12/25 02:21 Completed Lactate (Lactic Acid) Stat Lab 04/11/25 21:13 Completed Magnesium Stat Lab 04/11/25 21:05 Completed Partial Thromboplastin Time Stat Lab 04/11/25 21:05 Completed Procalcitonin Stat Lab 04/11/25 21:05 Completed Prothrombin Time with INR Stat Lab 04/11/25 21:05 Completed Renal Function Panel Stat Lab 04/12/25 02:09 Completed Troponin I Stat Lab 04/11/25 21:05 Completed Type and Screen Stat Lab 04/11/25 21:13 Completed Urinalysis, C/S if Indicated Stat Lab 04/12/25 02:21 Completed Urine Culture Stat Lab 04/12/25 02:21 Received VBG [Venous Blood Gas] Stat Lab 04/12/25 03:05 Completed Acetaminophen Tab [Tylenol ES Tab] Med 04/12/25 05:27 Discontinued 1,000 mg PO X1 ONE HYDROcodone/APAP 10/325 [[place] 10/325] Med 04/12/25 12:11 Discontinued 1 tab PO X1 ONE Magnesium Sulfate 2 GM Ivpb [Magnesium Sulfate Ivpb] Med 04/11/25 22:00 Discontinued 2 gm in 50 ml IV X1 Sodium Chloride 0.9% 1000 ml [Ns] 1,000 ml Med 04/12/25 07:17 Discontinued IV 999 mls/hr Vital Signs Vital signs: Vital Signs Temperature 98.1 F 04/11/25 19:42 Pulse Rate 91 04/11/25 19:42 Respiratory Rate 20 04/11/25 19:42 Blood Pressure 99/63 04/11/25 19:42 Pulse Oximetry (%) 97 04/11/25 19:42 Oxygen Delivery Method Room Air 04/11/25 19:42 O2 at 97% on RA and WNLs Fall MDM Narrative MDM Narrative:: 74F with history of CAD, HTN, DM, and CHF presents to ED with RUE pain and weakness after she got dizzy while sitting on the toilet 2 days ago and fell. There is also some head/neck pain. Possible AMS. Physical exam reveals L eye cataract. Possible L-sided facial droop. Speech normal. Normal WOB, but patient appears tired. Unremarkable RUE exam, except she can't move it much. Encephalographer strength equal bilaterally. Some upper back midline tenderness. No gross BLE pitting edema. Patient is afebrile, calm, and alert. Patient is outside the window of stroke alert. CT head unremarkable. CT neck/body states possibly old T1-T5 spinous process fxs. No leukocytosis or gross anemia. EKG is NSR with LVH. Trop normal. CXR unremarkable. BNP mildly elevated. Coags normal. CMP remarkable for mildly elevated Cr of 1.6 and moderately low bicarb, but normal anion-gap. Blood pH normal. Mag mildly low at 1.2, repleted. XRs of RUE normal. Procal/lactate normal. UA minimal pyuria. Unlikely relevant to clinical presentation. Repeat Cr lowered to 1.5 w/o IVF. Ca was lowered, but likely from mag infusion. Bicarb also slightly lower than previous value. Possible early RTA. Care signed out to colleague pending MRI and dispo. Patient eventually discharged with no acute fx on MRI thoraci and no stroke on MRI brain. Patient data External records reviewed:: [facility] previous records Clinical information provided by:: patient Social determinants that could affect healthcare access:: none Patient has the following chronic illnesses:: CAD, HTN, DM, and CHF How is presenting disease/condition affected by chronic disease/condition?: exacerbated by Evaluation data The following diagnostics were reviewed and interpreted by me:: lab results, radiology exam(s) and EKG tracing(s) Lab and/or radiology exams considered but not ordered:: ordered Interpretation Summary: above Medications / Prescriptions Medications or Prescriptions considered but not ordered:: ordered Medication administrations:: Medication Administration History Discontinued Medications Acetaminophen (Acetaminophen 500 Mg Tablet) 1,000 mg PO X1 ONE Stop: 04/12/25 05:28 Last Admin: 04/12/25 05:39 Dose: 1,000 mg Documented By: BLAKE Hydrocodone Bitart/Acetaminophen (Hydrocodone/Apap 10/325 Tab) 1 tab PO X1 ONE Stop: 04/12/25 12:12 Last Admin: 04/12/25 12:15 Dose: 1 tab Documented By: ABRAHAM Magnesium Sulfate (Magnesium Sulfate Ivpb) 2 gm in 50 mls @ 25 mls/hr IV X1 ONE Stop: 04/11/25 23:59 Last Infusion: 04/12/25 00:09 Dose: Infused Documented By: Admin: 04/11/25 22:09 Dose: 25 mls/hr Documented By: BLAKE Sodium Chloride (Ns) 1,000 mls @ 999 mls/hr IV .Q1H1M ONE Stop: 04/12/25 08:17 Last Infusion: 04/12/25 08:30 Dose: Infused Documented By: Admin: 04/12/25 07:36 Dose: 999 mls/hr Documented By: ABRAHAM above Consultations Consultation(s) initiated? (list below): No Diagnosis Fall Differential Diagnosis: syncope, dislocation of shoulder region, fracture of wrist, compression fracture, concussion with loss of consciousness, concussion without loss of consciousness and other (ACS, brain bleed, CVA/TIA, thoracic fracture, HOA, cardiorenal syndrome, fall and sprain of shoulder) Most likely diagnosis given after review of the tests above:: fall and sprain of shoulder Admission Indicated Admission indicated?: not indicated Admission Request Was there a request for admission?: No Disposition Plan Disposition Plan: Discharge Discharge Attestation Discharge Attestation: The patient and all family members were given an opportunity to ask questions and understood the discharge instructions. Discharge instructions specifically effects, indications for sooner follow up or return to the emergency department, and the expected course of current diagnosis. Patient condition: Stable Discharge Plan Plan Patient Disposition: HOME (Self Care) Discharge Disposition comment: Stable Prescriptions/Referrals Prescriptions/Med Rec: New hydrocodone-acetaminophen 5-325 mg tablet 1 tab PO BID MDD 10mg PRN (Reason: pain) Qty: 10 0RF No Action glipizide 10 MG tablet 10 mg PO QDAY Qty: 0 metformin 850 mg Tablet 850 mg PO BID Qty: 0 tramadol 50 mg Tablet 50 mg PO BID Qty: 0 famotidine [Pepcid] 40 mg Tablet 40 mg PO DAILY clopidogrel 75 mg Tablet 1 tab PO DAILY atorvastatin 20 mg Tablet 20 mg PO HS Qty: 30 2RF lisinopril 20 mg Tablet 20 mg PO QDAY Qty: 30 2RF meclizine 25 mg tablet 25 mg PO QDAY PRN (Reason: dizziness) Qty: 10 0RF cephalexin 500 mg capsule 500 mg PO QID Qty: 28 0RF Referrals: No Primary/Family,Physician [Primary Care Provider] - In 1 week Problem List Clinical Impression: Sprain of right shoulder, Fall Patient/Caregiver Discharge Instructions Education Materials: ED Fall with Uncertain Cause, ED Shoulder Sprain Additional Instructions: Por favor, consulte con ellison m?dico de cabecera en las pr?ximas 24 a 48 horas. Se realiz? esther resonancia magn?ashwini de ginna y cerebro, la cual result? negativa para cualquier infarto man u otros hallazgos agudos. Se realiz? esther resonancia magn?ashwini de la columna tor?cica, la cual result? negativa para cualquier fractura aguda. La tomograf?a computarizada mostr? algunas fracturas de aspecto antiguo en la columna tor?cica. Es importante que consulte con ellison m?dico de cabecera para recibir tratamiento adicional. El dolor de ellison hombro derecho puede deberse a un desgarro o da?o de ligamentos. Se enviaron analg?sicos a ellison farmacia; rec?jalos y t?melos seg?n las indicaciones. Si observa cualquier signo de empeoramiento de los signos o s?ntomas, acuda a urgencias de inmediato. Print Language: [place] Stand Alone Forms: Frances Award Info., Patient Portal Info Letter PA/INDUSTRIAL EQUIPMENT WIRER Supervising Physician PA/INDUSTRIAL EQUIPMENT WIRER Supervising Physician: Dr. Palma
[2025-04-11 21:23] LABS: Lactate (Lactic Acid) 1.6 mMol/L (0.4-2.0)
[2025-04-11 21:24] LABS: Basophils # (Auto) 0.0 Thou/mm3 (0.0-0.2); Basophils % (Auto) 0 % (0-2.5); Eosinophils # (Auto) 0.1 Thou/mm3 (0.0-0.5); Eosinophils % (Auto) 1 % (0-10); Hematocrit 31.2 % (36.0-46.0); Hemoglobin 10.1 g/dL (12.0-16.0); Immature Granulocytes Auto 0.01 Thou/mm3 (0.00-0.00); Lymphocytes # (Auto) 1.7 Thou/mm3 (1.0-4.8); Lymphocytes % (Auto) 32 % (10-50); Mean Corpuscular HGB Conc 32.4 g/dl (31.0-37.0); Mean Corpuscular Hemoglobin 30.2 pg (25.0-35.0); Mean Corpuscular Volume 93 fL (80-100); Monocytes # (Auto) 0.4 Thou/mm3 (0.0-0.8); Monocytes % (Auto) 9 % (0-12); Neutrophils # (Auto) 3.0 Thou/mm3 (1.8-7.7); Neutrophils % (Auto) 57 % (37-80); Nucleated Red Blood Cell # 0.00 Thou/mm3 (0.00-0.00); Nucleated Red Blood Cell % 0 /100 WBC (0); Platelet Count 123 Thou/mm3 (140-440); RDW Standard Deviation 49.1 fL (36.4-46.3); Red Blood Count 3.34 Miln/mm3 (4.00-5.20); White Blood Count 5.2 Thou/mm3 (3.6-11.0)
[2025-04-11 21:39] LABS: INR 1.1 (0.9-1.3); Partial Thromboplastin Time 23.9 Seconds (22.0-36.0); Prothrombin Time 11.9 Seconds (9.0-12.2)
[2025-04-11 21:41] LABS: B-Type Natriuretic Peptide 160 pg/mL (0-100)
[2025-04-11 21:50] LABS: Carbon Dioxide 17.1 mMol/L (20.0-31.0); Chloride 112 mMol/L (98-107); Potassium 3.6 mMol/L (3.4-5.1); Sodium 143 mMol/L (136-145)
[2025-04-11 21:51] LABS: Alanine Aminotransferase 13 U/L (10-49); Albumin, Serum 4.0 gm/dL (3.4-4.8); Albumin/Globulin Ratio 2.4 (1.2-2.2); Alkaline Phosphatase 46 U/L (46-116); Anion Gap 14 (7-16); Aspartate Amino Transferase 18 U/L (0-34); BUN/Creatinine Ratio 19 Ratio (12-20); Bilirubin,Total 0.2 mg/dL (0.3-1.2); Blood Urea Nitrogen 31 mg/dL (9-23); Calcium 8.2 mg/dL (8.3-10.6); Calcium (Corrected) 8.2 mg/dL (8.5-10.1); Creatinine (Component) 1.6 mg/dL (0.6-1.3); Estimated Creatinine Clearance 25.4 mL/min (>60); Globulin 1.7 gm/dL (2.3-3.5); Glucose 192 mg/dL (74-106); Magnesium 1.2 mg/dL (1.6-2.6); Osmolality,Calculated 296 (275-295); Procalcitonin 0.14 ng/ml (0.0-0.49); Total Protein 5.7 gm/dL (5.7-8.2); Troponin I < 0.020 ng/mL (0.0-0.045); eGFR 34 See Note
[2025-04-11] MEDS: Magnesium Sulfate 2 GM Ivpb 2 GM/50 ML BAG IV (22:09)
[2025-04-11 22:15] VITALS: BP 112/49; PULSE 76; RESP 12; TEMP 36.5; O2SAT 96
[2025-04-11 23:19] VITALS: BP 117/53; PULSE 76; RESP 13; O2SAT 91
[2025-04-12] VITALS (16 sets, daily range): BP systolic 101–171; BP diastolic 57–93; PULSE 68–95; RESP 11–20; TEMP 36.4–36.7; O2SAT 96–100
--- NOTE | 2025-04-12 | XR_ITS ---
Examination: MRI thoracic spine without contrast. Date and time of exam: April 12, 2025 1034 hours INDICATIONS: History old thoracic fractures, CT chest April 11, 2025, old appearing fractures posterior spinous processes T1, T2, T3, T4, T5 Technique: Multiple sagittal and axial images of the thoracic spine have been obtained. T1 weighted localizer, sagittal T2 weighted images, TR 30-50, TE 148, T1 weighted sagittal images, TR 650, TE 14, T2-weighted transverse images, TR 6770, TE 142 Findings: Mild kyphosis dorsal spine No acute thoracic vertebral body compression fracture Normal marrow signal thoracic vertebral bodies No marrow edema involving the posterior spinous processes including T1-T5 vertebral bodies Impression: No acute thoracic vertebral body compression fracture On the T2-weighted images, no marrow edema visualized involving the upper dorsal spinous processes
--- NOTE | 2025-04-12 | XR_ITS ---
Examination: MRI brain without intravenous contrast. Date and time of exam: April 12, 2025 1013 hours Comparison June 27, 2023 INDICATIONS: Dizziness episodes with weakness in the right arm beginning 2 days ago Technique: Multiple axial and sagittal images of the brain obtained. Siemens high-resolution 1.5 Rhonda short bore scanners utilized. Sagittal sections, T1-weighted, TR 500, TE 14, are performed. Axial sections proton-density and T2-weighted have been obtained. Inversion recovery axial images, TR 9, 260, TE 111, TI 2500. Diffusion weighted images, axial sections, TR 4800, TE 128, B value 1000 Axial sections, ADC map, TR 4800, TE 128 Findings: Enlargement of the sella turcica is not present. The optic chiasm and infundibular are not remarkable. Prepontine and interpeduncular cisterns are not enlarged. There is no localized enlargement of the medulla or bruna. Fourth ventricle and cerebellar tonsils appear normal in position. No subacute area of hemorrhage density is seen. Mass in the cerebellopontine angle region is not evident. Globes symmetrical. Orbital musculature including medial lateral rectus muscles do not exhibit abnormality. Diffusion-weighted images demonstrate no focus of restricted diffusion. Increased white matter signal moderate Atrophic changes involving the left optic globe Mass effect upon the ventricular system is not identified. Impression: Negative for acute hemorrhage mass effect or midline shift No acute infarct Moderate chronic microvascular white matter change
[2025-04-12 02:33] LABS: Albumin, Serum 3.5 gm/dL (3.4-4.8); Anion Gap 12 (7-16); BUN/Creatinine Ratio 17 Ratio (12-20); Blood Urea Nitrogen 26 mg/dL (9-23); Calcium 7.4 mg/dL (8.3-10.6); Calcium (Corrected) 7.8 mg/dL (8.5-10.1); Carbon Dioxide 16.8 mMol/L (20.0-31.0); Chloride 113 mMol/L (98-107); Creatinine (Component) 1.5 mg/dL (0.6-1.3); Estimated Creatinine Clearance 27.1 mL/min (>60); Glucose 184 mg/dL (74-106); Osmolality,Calculated 292 (275-295); Phosphorous 3.8 mg/dL (2.4-5.1); Potassium 3.4 mMol/L (3.4-5.1); Sodium 142 mMol/L (136-145); eGFR 37 See Note
[2025-04-12 02:49] LABS: Collection Type, Urine Clean Catch
[2025-04-12 03:00] LABS: Amphetamine/Methamp Scrn,U Negative (Negative); Bacteria,Urine Rare; Barbiturate Screen,Urine Negative (Negative); Benzodiazepines Screen,Urine Negative (Negative); Benzoylecgonine Screen, Ur Negative (Negative); Bilirubin,Urine Negative (Negative); Blood,Urine Negative (Negative); Clarity,Urine Clear (Clear/Hazy); Color,Urine Colorless (Lt Yel-Yel); Fentanyl Screen,Urine Negative (Negative); Glucose, Urine 3+ (Negative); Ketones,Urine Negative (Negative); Leukocyte Esterase,Urine Positive (Negative); Nitrite,Urine Negative (Negative); Opiate Screen,Urine Negative (Negative); PH,Urine 6.0 (5.0-7.0); Protein,Urine Negative (Neg - Trace); RBC,Urine 2 /hpf (0-3); Specific Gravity,Urine 1.022 (1.001-1.035); Squamous Epithelial Cell,Urine < 1 /hpf (0-5); THC Screen,Urine Negative (Negative); Transitional Epi Cells,Urine 1 /hpf (0-5); Urobilinogen,Urine Negative mg/dL (0.0-1.0); WBC,Urine 16 /hpf (0-5)
[2025-04-12 03:01] LABS: Culture Indicated,Urine Yes
[2025-04-12 03:24] LABS: Base Excess, Venous -5 (-3-3); O2 Saturation, Venous 59 % (96-97); PCO2, Venous 39 mmHg (36-56); PO2, Venous 32 mmHg (15-58); pH, Venous 7.34 (7.33-7.66)
[2025-04-12] MEDS: ACETAMINOPHEN 500 MG TABLET 1000 MG PO (05:39)
[2025-04-12] MEDS: SODIUM CHLORIDE 0.9% 1000 ML 1,000 ML 999 ML IV (07:36)
== END 2025-04-12 13:15 | disposition home or self-care (01) ==
PROVIDERS: Physician Assistant; Emergency Provider Emergency Medicine
DX: S43.401A Unspecified sprain of right shoulder joint, initial encounter (principal); S29.9XXA Unspecified injury of thorax, initial encounter; S59.901A Unspecified injury of right elbow, initial encounter; S09.90XA Unspecified injury of head, initial encounter; M54.2 Cervicalgia; R10.9 Unspecified abdominal pain; I11.0 Hypertensive heart disease with heart failure; M25.531 Pain in right wrist; I50.9 Heart failure, unspecified; R42 Dizziness and giddiness; R53.1 Weakness; W18.11XA Fall from or off toilet without subsequent striking against object, initial encounter
CPT/HCPCS: 36415; 70450; 70551; 71045; 71260; 72125; 72146; 73030; 73080; 73110; 74177; 80053; 80069; 80307; 81001; 82803; 83605; 83735; 83880; 84145; 84484; 85025; 85610; 85730; 86850; 86870; 86900; 86901; 87086; 93005; 96361; 96365; 96366; 99285; A4649; J3475; J7030; Q9967; A9270

== ENCOUNTER → 2025-05-21 | Outpatient (CLI) | payer OTHER, SELFPAY ==
--- NOTE | 2025-05-21 09:30 | XR_ITS ---
MRI shoulder, right, without contrast. Date and time: May 21, 2025 1022 hours INDICATIONS: Patient fell April 02, 2025 with infiltration of the shoulder, shoulder pain. Technique: Multiple axial, sagittal and coronal sections of the shoulder have been obtained. Siemens high-resolution 1.5 Rhonda MRI scanner is utilized. Axial fat-suppressed sections, TR 2350, TE 18 T2-weighted coronal fat-saturated images, TR 3500, TE 7100 T1-weighted coronal images, TR 500, TE 15 T2-weighted sagittal fat-saturated images, TR 3500, TE 57 T1-weighted sagittal sections, TR 504, TE 13. Findings: Supraspinatus tendon insertion is intact. Infraspinatus tendon insertion is intact. Subscapularis insertion is intact. Subscapularis bursa is not seen. Long head of the biceps is in the bicipital groove. No definite tear of the biceps superior labral anchor is seen. Retraction of the musculotendinous junction of the rotator cuff is not seen . Tendinosis pattern is mild. Distance between the acromium and humeral head is 4.9 mm Atrophy of the supraspinatus muscle is severe. Atrophy of the infraspinatus muscle is severe. Sagittal sections demonstrate a horizontal acromion. Acromioclavicular joint demonstrates moderate osteoarthritis. Osacromiale is not identified. Labral margins intact. Bony glenoid fossa on the sagittal sections does not demonstrate osseous defect. Occult fracture or area of avascular necrosis is not seen. Acromioclavicular joint separation is not visible. Defect in the posterolateral margin of the humeral head is not seen Impression: No occult fracture Rotator cuff intact Labral margins intact Moderate osteoarthritis glenohumeral joint
== END | disposition home or self-care (01) ==
PROVIDERS: PCP Family Medicine; Referring Provider Family Medicine; Visit Provider Family Medicine
DX: M19.011 Primary osteoarthritis, right shoulder (principal)
CPT/HCPCS: 73221

== ENCOUNTER → 2025-07-15 | Outpatient (CLI) | payer OTHER, MEDICAID, SELFPAY ==
[2025-07-15 11:37] LABS: Basophils # (Auto) 0.0 Thou/mm3 (0.0-0.2); Basophils % (Auto) 1 % (0-2.5); Eosinophils # (Auto) 0.1 Thou/mm3 (0.0-0.5); Eosinophils % (Auto) 2 % (0-10); Hematocrit 34.8 % (36.0-46.0); Hemoglobin 10.6 g/dL (12.0-16.0); Immature Granulocytes Auto 0.01 Thou/mm3 (0.00-0.00); Lymphocytes # (Auto) 1.7 Thou/mm3 (1.0-4.8); Lymphocytes % (Auto) 30 % (10-50); Mean Corpuscular HGB Conc 30.5 g/dl (31.0-37.0); Mean Corpuscular Hemoglobin 28.0 pg (25.0-35.0); Mean Corpuscular Volume 92 fL (80-100); Monocytes # (Auto) 0.3 Thou/mm3 (0.0-0.8); Monocytes % (Auto) 6 % (0-12); Neutrophils # (Auto) 3.4 Thou/mm3 (1.8-7.7); Neutrophils % (Auto) 61 % (37-80); Nucleated Red Blood Cell # 0.00 Thou/mm3 (0.00-0.00); Nucleated Red Blood Cell % 0 /100 WBC (0); Platelet Count 185 Thou/mm3 (140-440); RDW Standard Deviation 49.4 fL (36.4-46.3); Red Blood Count 3.78 Miln/mm3 (4.00-5.20); White Blood Count 5.5 Thou/mm3 (3.6-11.0)
[2025-07-15 11:46] LABS: Alanine Aminotransferase 13 U/L (10-49); Albumin, Serum 4.2 gm/dL (3.4-4.8); Albumin/Globulin Ratio 2.1 (1.2-2.2); Alkaline Phosphatase 54 U/L (46-116); Anion Gap 15 (7-16); Aspartate Amino Transferase 16 U/L (0-34); BUN/Creatinine Ratio 21 Ratio (12-20); Bilirubin,Total 0.3 mg/dL (0.3-1.2); Blood Urea Nitrogen 21 mg/dL (9-23); Calcium 8.9 mg/dL (8.3-10.6); Calcium (Corrected) 8.9 mg/dL (8.5-10.1); Carbon Dioxide 19.5 mMol/L (20.0-31.0); Cardiac Risk Estimate 3.9 RATIO (3.7-5.6); Chloride 113 mMol/L (98-107); Cholesterol 108 mg/dL (132-200); Creatinine (Component) 1.0 mg/dL (0.6-1.3); Globulin 2.0 gm/dL (2.3-3.5); Glucose 149 mg/dL (74-106); HDL Cholesterol 28 mg/dL (40-60); LDL Cholesterol,Calculated 27 mg/dL (0-130); Osmolality,Calculated 298 (275-295); Potassium 3.8 mMol/L (3.4-5.1); Sodium 147 mMol/L (136-145); Total Protein 6.2 gm/dL (5.7-8.2); Triglycerides 266 mg/dL (30-150); Troponin I < 0.020 ng/mL (0.0-0.045); eGFR 59 See Note
[2025-07-15 11:58] LABS: Glucose Estimated Average 177 mg/dL (80-131); Hemoglobin A1C 7.8 % Hgb (4.8-6.0)
== END | disposition home or self-care (01) ==
LOC: COPL 10:21
PROVIDERS: PCP Family Medicine; Referring Provider Family Medicine; Visit Provider Family Medicine
DX: D64.9 Anemia, unspecified (principal); E11.59 Type 2 diabetes mellitus with other circulatory complications; E78.2 Mixed hyperlipidemia; E79.0 Hyperuricemia without signs of inflammatory arthritis and tophaceous disease
CPT/HCPCS: 36415; 80053; 80061; 83036; 84484; 85025